=== PATIENT | female | born 1960 | race Caucasian/White ===

== ENCOUNTER 2016-07-09 15:47 | Emergency (ER) | payer OTHER, MEDICAID ==
[2016-07-09 15:59] VITALS: RESP 16
[2016-07-09 16:43] LABS: % IMMATURE GRANULYOCYTES 0.3 % (0.0-1.1); ABSOLUTE IMMATURE GRANULOCYTES 0.02 10^3/uL (0.00-0.10); ADD DIFF? NO; ADD MORPH? NO; ADD SCAN? NO; ATYPICAL LYMPHOCYTE FLAG 0 (0-99); FRAGMENT RBC FLAG 0 (0-99); HEMATOCRIT 44.7 % (38.0-47.0); HEMOGLOBIN 15.2 g/dL (12.6-16.3); LEFT SHIFT FLG 0 (0-99); LIPEMIA HEMOLYSIS FLAG 90 (0-99); MEAN CELL HEMOGLOBIN 29.9 pg (27.9-34.1); MEAN CELL VOLUME 87.8 fL (81.5-99.8); MEAN PLATELET VOLUME 9.8 fL (8.7-11.7); PLATELET CLUMPS FLAG 0 (0-99); PLATELET COUNT 239 10^3/uL (150-400); RED BLOOD CELL COUNT 5.09 10^6/uL (4.18-5.33); RED CELL DISTRIBUTION WIDTH 11.5 % (11.5-15.2)
--- NOTE | 2016-07-09 16:52 | EDPHY ---
H & P Stated Complaint: LUQ pain, intermittant lasting 30 minutes Time Seen by Provider: 07/09/16 16:06 HPI/ROS: CHIEF COMPLAINT: Left upper quadrant pain HISTORY OF PRESENT ILLNESS: The patient presents to the ED after an episode of fairly intense left upper quadrant pain which began about 1 hour prior to arrival. The patient denies any associated nausea, vomiting or diarrhea. The patient states her symptoms have essentially abated. The patient does report a prior history of renal colic typically manifest with symptoms more in her flank. The patient denies any hematuria or dysuria. The patient denies history of surgery. The patient denies significant past medical history. REVIEW OF SYSTEMS: A comprehensive 10 point review of systems is otherwise negative aside from elements mentioned in the history of present illness. Source: Patient Exam Limitations: No limitations - Personal History LMP (Females 10-55): Unknown Current Tetanus/Diphtheria Vaccine: Unsure Current Tetanus Diphtheria and Acellular Pertussis (TDAP): Unsure Tetanus Vaccine Date: < 10 years - Medical/Surgical History Hx Asthma: No Hx Chronic Respiratory Disease: No Hx Diabetes: No Hx Cardiac Disease: No Hx Renal Disease: No Hx Cirrhosis: No Hx Alcoholism: No Hx HIV/AIDS: No Hx Splenectomy or Spleen Trauma: No Other PMH: TBI, brain surgery, bilateral TMJ surgery - Social History Smoking Status: Never smoked - Physical Exam Exam: General Appearance: Alert, no distress Eyes: Pupils equal and round no pallor or injection ENT, Mouth: Mucous membranes moist Respiratory: There are no retractions, lungs are clear to auscultation Cardiovascular: Regular rate and rhythm Gastrointestinal: Abdomen is soft and nontender, no masses, bowel sounds normal Neurological: A&O, normal motor function, normal sensory exam, normal cranial nerves Skin: Warm and dry, no rashes Musculoskeletal: Neck is supple nontender Extremities: symmetrical, full range of motion Constitutional: Initial Vital Signs Temperature (C) 37.0 C 07/09/16 15:56 Heart Rate 74 07/09/16 15:56 Respiratory Rate 16 07/09/16 15:56 Blood Pressure 122/74 H 07/09/16 15:56 O2 Sat (%) 95 07/09/16 15:56 O2 Delivery Mode Room Air Allergies/Adverse Reactions: acetaminophen [From Vicodin] Allergy (Mild, Verified 07/09/16 15:54) n/v hydrocodone bitartrate [From Vicodin] Allergy (Mild, Verified 07/09/16 15:54) n/v gluten Allergy (Verified 07/09/16 15:54) Anxiety Milk Containing Products [dairy] Allergy (Verified 07/09/16 15:54) Congestion Home Medications: Medication Instructions Recorded Progesterone, Micronized 50 mg SL DAILY 08/14/12 [Progesterone] Herbals/Supplements -Info Only 1 tab DAILY 03/20/16 TESTOSTERONE 1 tab SL DAILY 03/20/16 THYROID 0.5 tab DAILY 03/20/16 Medical Decision Making - Diagnostics Imaging Results: Imaging Impressions Abdomen X-Ray 07/09/16 16:38 Impression: 1. Constipation. 2. Query focal adynamic ileus. ED Course/Re-evaluation: The patient presents to the ED with transient left upper quadrant pain. While she does have a history of nephrolithiasis there is no evidence of hematuria noted on her urinalysis today. She is asymptomatic at this point time. She does have evidence of constipation noted on her x-ray. The patient did undergo serial examinations in the ED by myself over a 2 hour period. The patient remained with an entirely benign abdominal exam throughout her stay in the ED. At this point time I do not feel that further workup is indicated. I do suspect that she was experiencing sharp left upper quadrant pain possibly secondary to the presence of constipation. The patient will be instructed to use an [id number] laxative. She should also return to the ED immediately for any recurrent abdominal pain as additional workup may be indicated. Differential Diagnosis: Differential diagnosis considered includes constipation, obstipation, nephrolithiasis, pyelonephritis - Data Points Laboratory Results: Laboratory Results 07/09/16 16:30 07/09/16 16:30 07/09/16 07/09/16 07/09/16 16:30 16:30 16:30 WBC 6.52 10^3/uL 10^3/uL (3.80-9.50) RBC 5.09 10^6/uL 10^6/uL (4.18-5.33) Hgb 15.2 g/dL g/dL (12.6-16.3) Hct 44.7 % % (38.0-47.0) MCV 87.8 fL fL (81.5-99.8) MCH 29.9 pg pg (27.9-34.1) MCHC 34.0 g/dL g/dL (32.4-36.7) RDW 11.5 % % (11.5-15.2) Plt Count 239 10^3/uL 10^3/uL (150-400) MPV 9.8 fL fL (8.7-11.7) Neut % (Auto) 58.0 % % (39.3-74.2) Lymph % (Auto) 29.6 % % (15.0-45.0) [place] % (Auto) 10.3 % % (4.5-13.0) Eos % (Auto) 1.2 % % (0.6-7.6) Baso % (Auto) 0.6 % % (0.3-1.7) Nucleat RBC Rel Count 0.0 % % (0.0-0.2) Absolute Neuts (auto) 3.78 10^3/uL 10^3/uL (1.70-6.50) Absolute Lymphs (auto) 1.93 10^3/uL 10^3/uL (1.00-3.00) Absolute Monos (auto) 0.67 10^3/uL 10^3/uL (0.30-0.80) Absolute Eos (auto) 0.08 10^3/uL 10^3/uL (0.03-0.40) Absolute Basos (auto) 0.04 10^3/uL 10^3/uL (0.02-0.10) Absolute Nucleated RBC 0.00 10^3/uL 10^3/uL (0-0.01) Immature Gran % 0.3 % % (0.0-1.1) Immature Gran # 0.02 10^3/uL 10^3/uL (0.00-0.10) Sodium 138 mEq/L mEq/L (134-144) Potassium 4.0 mEq/L mEq/L (3.5-5.2) Chloride 103 mEq/L mEq/L (97-110) Carbon Dioxide 25 mEq/l mEq/l (22-31) Anion Gap 10 mEq/L mEq/L (8-16) BUN 19 mg/dL mg/dL (7-23) Creatinine 0.8 mg/dL mg/dL (0.6-1.0) Estimated GFR > 60 Glucose 98 mg/dL mg/dL (70-100) Calcium 9.8 mg/dL mg/dL (8.5-10.4) Urine Color COLORLESS Urine Appearance CLEAR Urine pH 6.0 (5.0-7.5) Ur Specific [place] 1.002 (1.002-1.030) Urine Protein NEGATIVE (NEGATIVE) Urine Ketones NEGATIVE (NEGATIVE) Urine Blood NEGATIVE (NEGATIVE) Urine Nitrate NEGATIVE (NEGATIVE) Urine Bilirubin NEGATIVE (NEGATIVE) Urine Urobilinogen NEGATIVE EU EU (0.2-1.0) Ur Leukocyte Esterase NEGATIVE (NEGATIVE) Urine Glucose NEGATIVE (NEGATIVE) Departure - Departure Disposition: Home, Routine, Self-Care Clinical Impression: Abdominal pain, Constipation Condition: Good Instructions: Constipation (ED) Additional Instructions: Sometimes we are unable to diagnose an obvious cause of abdominal pain in the Emergency Department. Based upon our evaluation today, I believe you likely are experiencing constipation as the cause of her symptoms. Because more serious conditions can be difficult to diagnose early in the course of their presentation, we ask that you return to the Emergency Department in 8-12 hours for a recheck if you are still having pain. This is necessary to exclude the development of a more serious condition such as appendicitis or other intra- abdominal emergency. In the event your pain markedly increases before that time or you develop intractable vomiting or fever return to the Emergency Department immediately. Please try milk of magnesia as needed for any symptoms of constipation. Referrals: Frandy Blanca MD [Primary Care Provider] - As per Instructions
[2016-07-09 16:53] LABS: COLOR COLORLESS; LEUKOCYTE ESTERASE,URINE NEGATIVE (NEGATIVE); NITRITE,URINE NEGATIVE (NEGATIVE)
[2016-07-09 16:57] LABS: ANION GAP 10 mEq/L (8-16); CALCIUM 9.8 mg/dL (8.5-10.4); CARBON DIOXIDE 25 mEq/l (22-31); CHLORIDE 103 mEq/L (97-110); CREATININE 0.8 mg/dL (0.6-1.0); GLOMERULAR FILTRATION RATE > 60; GLUCOSE 98 mg/dL (70-100); SODIUM 138 mEq/L (134-144)
[2016-07-09 17:43] VITALS: BP 102/65; PULSE 79; TEMP 97.5; O2SAT 92
== END 2016-07-09 17:43 | disposition home or self-care (01) ==
DX: K59.00 Constipation, unspecified (principal)

== ENCOUNTER → 2018-06-29 | Outpatient (CLI) | payer OTHER | LOC: FIMAGING 11:33 | PROVIDERS: ATTEND Family Medicine | DX: Z12.31 Encounter for screening mammogram for malignant neoplasm of breast (principal) ==